=== PATIENT | female | born 1955 | race Caucasian/White ===

== ENCOUNTER 2020-06-30 14:20 | Outpatient (CLI) | payer OTHER, SELFPAY ==
--- NOTE | 2020-06-30 14:32 | XR_ITS ---
WS: [id number] EXAM: XR DEXA axial skeleton* [id number] DATE OF EXAMINATION: 06/30/2020, 1440 hours COMPARISON: None. HISTORY: 65 years year old female. Screening for osteoporosis. Postmenopausal. FINDINGS: Bone density of L1 through L4 is estimated at 0.953 g/cm sq: T-score of -1.9. This falls in the rang e of osteopenia. Bilateral proximal femur regions have bone mineral density estimated at 0.821 and 0.842 g/cm sq, righ t and left respectively, correlating with a T-score of -1.5 and -1.3. This falls in the range of oste openia. 10-year fracture risk for major osteoporotic fracture is 10.7%. XR/XR DEXA axial skeleton* [id number] IMPRESSION: Estimated bone density falls in the range of osteopenia in the lumbar spine and both proximal femur regions.
== END 2020-06-30 14:21 | disposition home or self-care (01) ==
LOC: RADWPI 14:22
PROVIDERS: PCP Electrodiagnostic Medicine; Visit Provider Electrodiagnostic Medicine
DX: Z78.0 Asymptomatic menopausal state (principal)
CPT/HCPCS: 77080

== ENCOUNTER 2021-03-23 07:59 | Outpatient (CLI) | payer OTHER, SELFPAY ==
--- NOTE | 2021-03-23 08:04 | MM_ITS ---
WS: [id number] LEFT DIGITAL MAMMOGRAPHY WITH CAD CLINICAL INFORMATION: LT BREAST PAIN;HX OF BREAST CA HISTORY: Prior history of lumpectomy and radiation therapy left breast. COMPARISON: TECHNIQUE: 6 views of the left breast were obtained. FINDINGS: Scattered fibroglandular densities of the left breast. Prior postoperative changes lumpectomy. Palpab le marker upper inner left breast. No definite underlying mammographic abnormalities. Ultrasound is p ending. Incidental punctate calcifications. ULTRASOUND BREAST LEFT TECHNIQUE: Ultrasound left breast focused area of concern. CLINICAL INFORMATION: LT BREAST PAIN;HX OF BREAST CA COMPARISON: None. FINDINGS: ULTRASOUND BREAST LEFT TECHNIQUE: Ultrasound left breast focused area of concern. CLINICAL INFORMATION: LT BREAST PAIN;HX OF BREAST CA FINDINGS: Ultrasound 11:00 position left breast medial to the scar 4 cm from the nipple. Normal underlying pare nchymal tissue. No evidence of suspicious cystic or solid lesions. No lesions to target for biopsy. I ncidentally noted is underlying shadowing rib with calcification. This may correspond to area of palp able concern. MM/[place] [id number] IMPRESSION: BI-RADS: 2-Benign FOLLOW UP: 1 Year Follow-up Recommend return to annual diagnostic mammography.
== END 2021-03-23 08:00 | disposition home or self-care (01) ==
LOC: RADSHAW 08:03
PROVIDERS: PCP Electrodiagnostic Medicine; Visit Provider Electrodiagnostic Medicine
DX: N64.4 Mastodynia (principal); Z85.3 Personal history of malignant neoplasm of breast
CPT/HCPCS: 76642; 77065

== ENCOUNTER → 2021-09-11 08:34 | Outpatient (BNVA) | payer OTHER, SELFPAY | PROVIDERS: PCP Electrodiagnostic Medicine; Visit Provider Urology | DX: R31.29 Other microscopic hematuria (principal) | CPT/HCPCS: 81003; 87086 ==

== ENCOUNTER → 2021-10-16 09:45 | Outpatient (BNVA) | payer OTHER, SELFPAY | PROVIDERS: PCP Electrodiagnostic Medicine; Visit Provider Urology | DX: N30.20 Other chronic cystitis without hematuria (principal); N76.0 Acute vaginitis | CPT/HCPCS: 81003 ==

== ENCOUNTER → 2021-11-30 10:49 | Outpatient (BNVA) | payer OTHER, SELFPAY | PROVIDERS: PCP Electrodiagnostic Medicine; Visit Provider Urology | DX: N30.20 Other chronic cystitis without hematuria (principal) | CPT/HCPCS: 81003 ==

== ENCOUNTER → 2022-03-01 14:01 | Outpatient (BNVA) | payer MEDICARE, OTHER, SELFPAY | PROVIDERS: PCP Electrodiagnostic Medicine; Visit Provider Urology | DX: R31.29 Other microscopic hematuria (principal); N30.20 Other chronic cystitis without hematuria | CPT/HCPCS: 81003 ==

== ENCOUNTER 2022-04-20 10:17 | Outpatient (CLI) | payer MEDICARE, OTHER, SELFPAY ==
--- NOTE | 2022-04-20 10:38 | XR_ITS ---
WS: [id number] Exam: XR chest 2V* [id number] Date/Time of Exam: 04/20/2022 10:38 AM Reason For Exam: DYSPNEA/HIATAL HERNIA Comparison 08/27/2019. The lungs are fully expanded and clear. Cardiomediastinal silhouette is unremarkable in appearance. L arge fixed hiatal hernia. Surgical clips along the left axilla. Bony structures are intact. XR/XR chest 2V* [id number] IMPRESSION: 1. No acute cardiopulmonary finding. Large hiatal hernia.
== END 2022-04-20 10:18 | disposition home or self-care (01) ==
LOC: RAD 10:29
PROVIDERS: PCP Family Medicine; Visit Provider Family Medicine
DX: K44.9 Diaphragmatic hernia without obstruction or gangrene (principal); R06.00 Dyspnea, unspecified
CPT/HCPCS: 71046

== ENCOUNTER → 2022-06-12 09:05 | Outpatient (BNVA) | payer MEDICARE, OTHER, SELFPAY | PROVIDERS: PCP Family Medicine; Visit Provider Urology | DX: N30.20 Other chronic cystitis without hematuria (principal) | CPT/HCPCS: 81003; 99213 ==

== ENCOUNTER → 2023-02-28 09:06 | Outpatient (BNVA) | payer MEDICARE, OTHER, SELFPAY | PROVIDERS: PCP Family Medicine; Visit Provider Family Medicine | DX: E78.5 Hyperlipidemia, unspecified (principal); E03.9 Hypothyroidism, unspecified; Z51.81 Encounter for therapeutic drug level monitoring; Z13.220 Encounter for screening for lipoid disorders; N30.20 Other chronic cystitis without hematuria | CPT/HCPCS: 80053; 80061; 81000; 84439; 84443; 85025 ==

== ENCOUNTER 2023-04-01 08:11 | Outpatient (CLI) | payer MEDICARE, OTHER, SELFPAY ==
--- NOTE | 2023-04-01 08:15 | US_ITS ---
WS: [id number] US pelv w/transvag [id number] HISTORY: Pelvic pain COMPARISON: None available. Uterus: 7.3 cm x 4.4 cm x 3.2 cm. Uterus is retroverted. Heterogeneous appearance of the uterus. There is a predominantly hypoechoic ma ss centered towards the fundus of the uterus with mild shadowing measuring 3.7 x 3.0 x 3.4 cm. Mild i ncreased vascularity. This mass is displacing and distorting the endometrium. Endometrium appears to be displaced posterior and very poorly visualized. Endometrium: Junctional zone is distorted and not visualized due to the fundal mass. Right ovary: 2.6 cm x 1.9 cm x 0.9 cm. Normal size and vascularity, no cystic or solid masses. Left ovary: 3.5 cm x 3.2 cm x 1.7 cm. Very slightly enlarged uterus. LEFT ovarian cyst measures 2.9 x 1.3 x 3.1 cm. No free fluid in the cul-de-sac. US/US pelv w/transvag [id number] IMPRESSION: 1. Solid mass with shadowing centered towards the fundus of the uterus. Most c onsistent with a fibroid. As the endometrium is being displaced posteriorly and not visualized endometrial mass is not completely excluded. 2. Fundal uterine mass measures 3.7 x 3.0 x 3.4 cm. 3. LEFT ovarian cyst 2.9 x 1.3 x 3.1 cm (O-RADS-2). No further imaging necessa ry.
== END 2023-04-01 08:12 | disposition home or self-care (01) ==
LOC: RAD 08:16
PROVIDERS: PCP Family Medicine; Visit Provider Family Medicine
DX: R10.2 Pelvic and perineal pain (principal); N85.9 Noninflammatory disorder of uterus, unspecified; N83.202 Unspecified ovarian cyst, left side
CPT/HCPCS: 76830; 76856

== ENCOUNTER 2023-11-01 11:57 | Outpatient (CLI) | payer MEDICARE, OTHER, SELFPAY ==
--- NOTE | 2023-11-01 12:15 | US_ITS ---
WS: [id number] INDICATION: Popliteal cyst TECHNIQUE: Ultrasound soft tissue area of concern FINDINGS: Ultrasound LEFT popliteal fossa. No evidence popliteal cyst in the area of concern. Normal underlying soft tissue. IMPRESSION: No evidence of popliteal cyst LEFT knee
== END 2023-11-01 11:58 | disposition home or self-care (01) ==
LOC: RAD 11:57
PROVIDERS: PCP Family Medicine; Visit Provider Family Medicine
DX: M25.562 Pain in left knee (principal)
CPT/HCPCS: 76882

== ENCOUNTER → 2023-11-14 08:45 | Outpatient (BNVA) | payer MEDICARE, OTHER, SELFPAY | PROVIDERS: PCP Family Medicine; Visit Provider Nurse Practitioner Family | DX: L57.8 Other skin changes due to chronic exposure to nonionizing radiation (principal); D22.5 Melanocytic nevi of trunk; L81.4 Other melanin hyperpigmentation; Z85.828 Personal history of other malignant neoplasm of skin | CPT/HCPCS: 17110; 99213 ==

== ENCOUNTER 2023-12-04 09:19 | Outpatient (CLI) | payer MEDICARE, OTHER, SELFPAY ==
--- NOTE | 2023-12-04 09:22 | XR_ITS ---
WS: [id number] XR knee LT 3V* [id number] REASON FOR EXAM: Left knee pain FINDINGS: No fracture or focal bone lesion. The medial and lateral knee joint spaces are not well evaluated due to patient positioning on the AP views. On the lateral view the joint spaces appear intact and relatively well preserved. The patellofemoral joint space appears intact and relatively well preserved. No soft tissue abnormality. IMPRESSION: No significant abnormality.
== END 2023-12-04 09:20 | disposition home or self-care (01) ==
LOC: RAD 09:20
PROVIDERS: PCP Family Medicine; Visit Provider Family Medicine
DX: M25.562 Pain in left knee (principal)
CPT/HCPCS: 73562

== ENCOUNTER → 2024-03-12 10:03 | Outpatient (BNVA) | payer MEDICARE, OTHER, SELFPAY | PROVIDERS: PCP Family Medicine; Visit Provider Family Medicine | DX: E53.8 Deficiency of other specified B group vitamins (principal); E03.9 Hypothyroidism, unspecified; E78.5 Hyperlipidemia, unspecified; Z13.220 Encounter for screening for lipoid disorders; E55.9 Vitamin D deficiency, unspecified; Z51.81 Encounter for therapeutic drug level monitoring | CPT/HCPCS: 80053; 80061; 82306; 82607; 84439; 84443; 85025 ==

== ENCOUNTER → 2024-04-01 10:29 | Outpatient (BNVA) | payer MEDICARE, OTHER, SELFPAY | PROVIDERS: PCP Family Medicine; Referring Provider Family Medicine; Visit Provider Surgery | DX: Z12.11 Encounter for screening for malignant neoplasm of colon (principal) | CPT/HCPCS: 99024; 99203 ==

== ENCOUNTER 2024-05-05 10:27 | Day surgery (SDC) | payer MEDICARE, OTHER, SELFPAY ==
[2024-05-05 10:55] VITALS: BP 151/85; PULSE 86; RESP 18; TEMP 36.8; O2SAT 99; BMI 23.1
--- NOTE | 2024-05-05 10:58 | W.PM.OPSFHP ---
Same Day Surgery H&P Indication for Procedure/HPI DATE OF PROCEDURE: May 05, 2024 CHIEF COMPLAINT/INDICATIONFOR SURGICAL PROCEDURE: need for screening colonoscopy PREOP DIAGNOSIS: need for screenign colonoscopuy PLANNED PROCEDURE: Operation Date: 05/05/24 11:45 Proposed Procedures p Colonoscopy 16213, G0105, Z12.11(Not Applicable) - Joshua Carter MD Medications/Allergies* Home Medications Medication Instructions Recorded Confirmed Type Lactobacillus acidophilus 10 10,000 mmu cells PO DAILY 11/30/21 04/30/24 History billion cell capsule (Probiotic) estradiol 0.01% (0.1 mg/gram) 1 g vaginal .ONCE A WEEK 02/26/23 05/05/24 History vaginal cream Allergies/Adverse Reactions Allergy/AdvReac Type Severity Reaction Status Date / Time ciprofloxacin [From Cipro] Allergy ADR-Nausea Verified 04/30/24 11:52 Sulfa (Sulfonamide Allergy ADR-Itching Verified 04/30/24 11:52 Antibiotics) metoclopramide [From Reglan] AdvReac hyper Verified 04/30/24 11:52 fluvastatin Allergy ADR-Muscle Uncoded 04/30/24 11:52 Pain Pertinent History/Comorbid Conditions* Medical History (Updated 03/12/24 @ 10:27 by Domenico Rodriguez MD) Elevated cholesterol Hx of breast cancer Hx of skin cancer, basal cell Hypothyroidism Retina hole REPAIRED Microscopic hematuria Surgical History (Updated 10/23/21 @ 14:11 by Liliane Parker DO) History of lumpectomy of left breast Hx of gynecological procedure Family History (Updated 09/11/21 @ 08:44 by CEZAR Suazo) Father, AT AGE 49 LUNG CANCER Mother, AT AGE 84 Diabetes Mother CAD (coronary artery disease) Mother Cancer Mother BREAST Father Social History Smoking and tobacco/nicotine status: never used tobacco/nicotine Alcohol intake: never Marital status: Current occupational status: retired Pertinent Exam Findings alert, oriented x 3 and clear to auscultation bilaterally Recommendations Surgery/Procedure today Coding Level of Care Code Acute Code for Chg Fwd
[2024-05-05] MEDS: sodium chloride 0.9% 1,000 ML 30 ML IV (11:00)
--- NOTE | 2024-05-05 11:13 | ANES.PREANE2 ---
Pre-Anesthetic Assessment Height/Weight: Height 1.63 m Weight 61.235 kg Temp Pulse Resp BP Pulse Ox O2 Del Method 98.2 F 86 18 151/85 99 Room Air 05/05/24 10:55 05/05/24 10:55 05/05/24 10:55 05/05/24 10:55 05/05/24 10:55 05/05/24 10:55 Preop Diagnosis: need for screenign colonoscopuy Operation Date: 05/05/24 11:45 Proposed Procedures p Colonoscopy 20793, G0105, Z12.11(Not Applicable) - Joshua Carter MD Familial anesthetic complications: None Was Beta Salas taken within 24 hours: N/A Was Clonidine taken within 24 hours: N/A Last intake: Intake Last Liquid Date 05/04/24 Last Liquid Time 19:30 Last Solid Date 05/03/24 Last Solid Time 23:00 Social No alcohol and No tobacco Exam alert, oriented x 3, clear to auscultation bilaterally and regular rate & rhythm Airway Submandibular: within normal limits Cervical ROM: within normal limits Mallampati: Class III Dentition: full History/ROS No significant history except as noted and No significant complaints Pulmonary None reported CV/HEM Palpitations Urinary Tract Infection Hepatic None reported GI None reported Metabolic Hyperlipidemia and Thyroid Disease Musc/skel Osteoarthritis/DJD Neuropsych Depression Anesthetic Plan ASA status: 1 Anesthesia: Anesthesia Evaluation, General and MAC Risk of > 500 ml blood loss (7ml/kg in children): No Medications/Allergies Home Medications Medication Instructions Recorded Confirmed Last Taken Type Lactobacillus acidophilus 10 10,000 mmu cells PO DAILY 11/30/21 04/30/24 05/03/24 History billion cell capsule (Probiotic) estradiol 0.01% (0.1 mg/gram) 1 g vaginal .ONCE A WEEK 02/26/23 05/05/24 05/01/24 History vaginal cream imipramine HCl 50 mg tablet 50 mg PO DAILY #90 tabs 03/12/24 04/30/24 05/04/24 Rx levothyroxine 50 mcg tablet 50 mcg PO DAILY #90 tabs 03/12/24 04/30/24 05/05/24 06:30 Rx ondansetron 8 mg disintegrating 8 mg PO Q8H PRN nausea and 06/10/24 06/25/24 06/24/24 Rx tablet vomiting #20 tabs Allergies Allergy/AdvReac Type Severity Reaction Status Date / Time ciprofloxacin [From Cipro] Allergy ADR-Nausea Verified 04/30/24 11:52 Sulfa (Sulfonamide Allergy ADR-Itching Verified 04/30/24 11:52 Antibiotics) metoclopramide [From Reglan] AdvReac hyper Verified 04/30/24 11:52 fluvastatin Allergy ADR-Muscle Uncoded 04/30/24 11:52 Pain Current Medications Generic Name Dose Route Start Last Admin Trade Name Freq PRN Reason Stop Dose Admin Sodium Chloride 1,000 mls @ 30 mls/hr 05/05/24 10:45 05/05/24 11:00 Sodium Chloride 0.9% IV 30 mls/hr .Q24H SEBASTIEN Administration PFSH Anesthesia Medical History Elevated cholesterol Hx of breast cancer Hx of skin cancer, basal cell Hypothyroidism Retina hole REPAIRED Microscopic hematuria Surgical History History of lumpectomy of left breast Hx of gynecological procedure Family History Mother , AT AGE 84 Diabetes Cancer BREAST CAD (coronary artery disease) Father , AT AGE 49 LUNG CANCER Cancer Social History Smoking and tobacco/nicotine status: never used tobacco/nicotine Alcohol intake: never Marital status: Current occupational status: retired Data Anesthesia Cardiac Studies: Cardiac Event Monitor 03/18/24
[2024-05-05 11:53] VITALS: BP 123/79; PULSE 91; RESP 12; TEMP 36.2; O2SAT 98
[2024-05-05 12:00] VITALS: BP 139/88; PULSE 83; RESP 16; O2SAT 100
[2024-05-05 12:08] VITALS: BP 142/86; PULSE 84; RESP 16; O2SAT 99
--- NOTE | 2024-05-05 12:25 | ANE.PACU2 ---
Inpatient post-anesthesia follow up: Airway intact: Yes Vital signs: Temperature 97.1 F Pulse Rate 84 Respiratory Rate 16 Blood Pressure 142/86 Pulse Oximetry 99 Oxygen Delivery Me thod Room Air Oxygen Flow Rate Fraction of Inspir ed Oxygen Hydration adequate: Yes Nausea and vomiting: No Pain level: 1 Mental status: Baseline
== END 2024-05-05 12:28 | disposition home or self-care (01) ==
PROVIDERS: PCP Family Medicine; Visit Provider Surgery
PROC: 0DJD8ZZ Inspection of Lower Intestinal Tract, Via Natural or Artificial Opening Endoscopic (ICD-10-PCS; CPT 45330; 2024-05-05 11:45)
DX: Z12.11 Encounter for screening for malignant neoplasm of colon (principal); D12.8 Benign neoplasm of rectum; Z85.3 Personal history of malignant neoplasm of breast; E03.9 Hypothyroidism, unspecified; E78.5 Hyperlipidemia, unspecified; M19.90 Unspecified osteoarthritis, unspecified site
CPT/HCPCS: 45331; 45335; 88305; J2704; J7030

== ENCOUNTER 2024-05-06 12:07 | Outpatient (CLI) | payer MEDICARE, OTHER, SELFPAY ==
[2024-05-06 13:12] LABS: Carcinoembryonic Antigen 2.6 ng/mL (0.0-4.7)
[2024-05-06 13:24] LABS: Alanine Aminotransferase 12 U/L (0-33); Albumin Level 4.1 g/dL (3.5-5.2); Alkaline Phosphatase 81 U/L (35-105); Anion Gap 14.9 (5-19); Aspartate Amino Transferase 15 U/L (0-32); Blood Urea Nitrogen 15 mg/dL (8-23); Calcium 8.7 mg/dL (8.5-10.5); Carbon Dioxide 24 mmol/L (22-29); Chloride 99 mmol/L (98-107); Glomerular Filtration Rate 55.3 mL/min (90-130); Glucose 126 mg/dL (65-115); Osmolality Calculated 280 mOsm/kg (285-295); Potassium 3.9 mmol/L (3.5-5.1); Sodium 134 mmol/L (136-145); Total Bilirubin 0.4 mg/dL (0.15-1.2); Total Protein 7.1 g/dL (6.6-8.7)
[2024-05-06 14:19] LABS: Basophils % 0.4 %; Eosinophils % 0.6 %; Hematocrit 41.5 % (36-47); Lymphocytes # 1.9 10^3/uL (0.8-4.8); Lymphocytes % 27.4 %; Mean Corpuscular HGB Conc 32.3 g/dL (30-55); Mean Corpuscular Hemoglobin 27.5 pg (27-33); Mean Corpuscular Volume 85.2 fl (85-98); Mean Platelet Volume 9.7 fL (7.4-10.4); Monocytes # 0.3 10^3/uL (0.2-0.9); Monocytes % 4.9 %; Neutrophils # 4.64 10^3/uL (1.8-7.7); Neutrophils % 66.4 %; Nucleated Red Blood Cells % 0 %; Platelet Count 322 10^3/cmm (157-399); Red Blood Count 4.87 10^6/uL (3.85-5.65); Red Cell Distribution Width 12.7 % (12.1-15.1); White Blood Count 6.98 10^3/uL (3.29-11.43)
== END 2024-05-06 12:08 | disposition home or self-care (01) ==
LOC: LAB 12:08
PROVIDERS: PCP Family Medicine; Visit Provider Surgery
DX: C18.9 Malignant neoplasm of colon, unspecified; K63.89 Other specified diseases of intestine
CPT/HCPCS: 36415; 80053; 82378; 85025

== ENCOUNTER 2024-05-12 15:20 | Outpatient (CLI) | payer MEDICARE, OTHER, SELFPAY ==
[2024-05-12] MEDS: iohexol 350 mg/mL 500 mL Btl (per mL) PO (16:09)
--- NOTE | 2024-05-12 16:30 | CTR_ITS ---
PROCEDURE INFORMATION: Exam: CT Abdomen And Pelvis With Contrast Exam date and time: 05/12/2024 4:36 PM Age: 69 years old Clinical indication: Other: Ther specified diseases of intestine; Patient HX: Follow up from colonoscopy, mass in colon, HX of breast cancer; Additional info: K63.89 - other specified diseases of intestine, oral and iv contrast TECHNIQUE: Imaging protocol: Computed tomography of the abdomen and pelvis with contrast. Radiation optimization: All CT scans at this facility use at least one of these dose optimization techniques: automated exposure control; mA and/or kV adjustment per patient size (includes targeted exams where dose is matched to clinical indication); or iterative reconstruction. Contrast material: OMNI 350; Contrast volume: 100 ml; Contrast route: INTRAVENOUS (IV); COMPARISON: CR XR KUB [id number] 08/26/2019 9:54 AM RADIATION DOSE METRICS: Total DLP (mGy-cm): 319.71 FINDINGS: Liver: Normal. No mass. Gallbladder and biliary ducts: 2 calcified gallstones up to 1.6 cm are present. No evidence of acute changes in the gallbladder. No biliary dilation. Pancreas: Normal. No ductal dilation. Spleen: Normal. No splenomegaly. Adrenal glands: Normal. No mass. Kidneys and ureters: Normal. No hydronephrosis. Stomach and bowel: Large hiatal hernia containing most of the stomach. Scattered sigmoid diverticuli without acute inflammatory change. Ofoanbuz-cl-ocqcp amount colonic stool. Enteric contrast reaches the hepatic flexure. A 1.6 cm rounded density in the rectosigmoid junction (series 3, image 66) be due to stool versus polyp. Otherwise no clear-cut colonic thickening of the stricture to correlate with the history of mass in colon . Appendix: Unremarkable appendix. Intraperitoneal space: Unremarkable. No free air. No significant fluid collection. Vasculature: Unremarkable. No abdominal aortic aneurysm. Lymph nodes: Unremarkable. No enlarged lymph nodes. Urinary bladder: Unremarkable as visualized. Reproductive: 4.1 cm fibroid is noted of the uterine fundus. Small left ovarian cyst incidentally noted, up to 2.5 x 1.5 cm. Bones/joints: 3.1 cm sclerotic area in the right iliac bone (series 3, image 55) is not further characterized and could be due to benign versus neoplastic etiology, the former seems more likely. A sclerotic corresponding area noted on MRI obtained 09/11/2019. Mild rotary scoliosis. [id number]-[id number] multilevel endplate spurring in the lumbar spine. Grade 1 anterolisthesis of L4 over L5-C2 moderately underlying facet arthropathy. Soft tissues: Small bilateral fat containing inguinal hernias without evident complications. CT/CT abdomen pelvis w con* [id number] IMPRESSION: 1. Large volume colonic stool retention/constipation . 2. A 1.6 cm rounded density in the rectosigmoid junction due to fecal material versus polyp. Correlation with the reported colonoscopy findings recommended. 3. A 3.1 cm sclerotic area in the right iliac bone likely with stable correlate as far back as 2019 lumbar MRI. However, correlation with any other available prior imaging recommended given the reported history of neoplasia. 4. Large calcified gallstones, large hiatal hernia sigmoid diverticula and other findings detailed above.
[2024-05-12] MEDS: iohexol 350 mg/mL 500 mL Btl (per mL) IV (16:42)
== END 2024-05-12 15:21 | disposition home or self-care (01) ==
LOC: RAD 15:21
PROVIDERS: PCP Family Medicine; Visit Provider Surgery
DX: K63.89 Other specified diseases of intestine (principal); Z85.3 Personal history of malignant neoplasm of breast; K80.20 Calculus of gallbladder without cholecystitis without obstruction; K44.9 Diaphragmatic hernia without obstruction or gangrene; K56.41 Fecal impaction; D25.9 Leiomyoma of uterus, unspecified; M43.16 Spondylolisthesis, lumbar region; M47.896 Other spondylosis, lumbar region
CPT/HCPCS: 74177; Q9967

== ENCOUNTER → 2024-05-20 14:14 | Outpatient (BNVA) | payer MEDICARE, OTHER, SELFPAY | PROVIDERS: PCP Family Medicine; Visit Provider Surgery | DX: Z09 Encounter for follow-up examination after completed treatment for conditions other than malignant neoplasm (principal) | CPT/HCPCS: 99204; 99213 ==

== ENCOUNTER 2024-06-03 15:42 | Outpatient (CLI) | payer MEDICARE, OTHER, SELFPAY ==
[2024-06-03] MEDS: iohexol 350 mg/mL 500 mL Btl (per mL) IV (15:57)
--- NOTE | 2024-06-03 16:00 | CT_ITS ---
WS: [id number] CT HEAD WITH AND WITHOUT CONTRAST HISTORY: Headache TECHNIQUE: Noncontrast 2.5 mm axial images obtained from the vertex to the skull base. Additional lulú ging performed at 2.5 mm axial images status post IV contrast. Bone and soft tissue windows are revie wed. All CT scans at [facility] use at least one of these dose optimization techniques: autom ated exposure control; mA and/or kV adjustment per patient size (includes targeted exams where dose i s matched to clinical indication); or iterative reconstruction. CONTRAST: Omnipaque 350; 100 mL IV. DLP: 1941.18 mGy.cm COMPARISON: None available. No acute intracranial hemorrhage, edema or midline shift. Mild atrophy and mild small vessel ischemic disease. No prior infarct. No sulcal effacement or mass effect. No enhancing mass or vascular malformations identified. Dural venous sinuses are normally enhancing. Visualized [place] is unremarkable. Paranasal sinuses as visualized: Clear. Mastoid air cells: Clear. Calvarium and scalp: Intact. CT/CT head wo/w con [id number] IMPRESSION: 1. No acute intracranial hemorrhage or edema. 2. No enhancing mass. 3. Mild cerebral atrophy and small vessel ischemic disease. 4. Visualized [place] of [place] is negative. 5. No sinus disease.
== END 2024-06-03 15:43 | disposition home or self-care (01) ==
LOC: RAD 15:42
PROVIDERS: PCP Family Medicine; Visit Provider Family Medicine
DX: R51.9 Headache, unspecified (principal); R42 Dizziness and giddiness
CPT/HCPCS: 70470; Q9967

== ENCOUNTER 2024-06-27 06:46 | Emergency (ER) | payer MEDICARE, OTHER, SELFPAY ==
[2024-06-27 07:05] VITALS: BP 122/86; PULSE 128; RESP 16; O2SAT 100; BMI 22.6
--- NOTE | 2024-06-27 07:09 | CTR_ITS ---
PROCEDURE INFORMATION: Exam: CT Abdomen And Pelvis With Contrast Exam date and time: 06/27/2024 8:06 AM Age: 69 years old Clinical indication: Abdominal pain; Localized; Lower; Prior surgery; Surgery date: 3-7 days post-operative; Surgery type: 28cm distal bowel resection d/t mass removal; Patient HX: HX breast and skin cancer, recent colon mass removal; Additional info: Abd pain TECHNIQUE: Imaging protocol: Computed tomography of the abdomen and pelvis with contrast. Radiation optimization: All CT scans at this facility use at least one of these dose optimization techniques: automated exposure control; mA and/or kV adjustment per patient size (includes targeted exams where dose is matched to clinical indication); or iterative reconstruction. Contrast material: OMNIPAQUE 350; Contrast volume: 100 ml; Contrast route: INTRAVENOUS (IV); COMPARISON: CT abdomen pelvis w con* [id number] 05/12/2024 4:36 PM RADIATION DOSE METRICS: Total DLP (mGy-cm): 444.71 FINDINGS: Lungs: Bilateral lobe atelectasis. Diaphragm: Large hiatal hernia. Liver: Normal. No mass. Gallbladder and biliary ducts: Calcified gallstones no changes of cholecystitis. Pancreas: Normal. No ductal dilation. Spleen: Normal. No splenomegaly. Adrenal glands: Normal. No mass. Kidneys and ureters: Normal. No hydronephrosis. Stomach and bowel: No gastric outlet obstruction. Surgical changes of partial distal colectomy dilatation small bowel loops with no transition zone, suggestive of ileus. Above average fecal loading in the ascending and transverse colon with mild dilatation. Appendix: No evidence of appendicitis. Intraperitoneal space: Mild ascites. Vasculature: Vascular calcifications. Lymph nodes: Unremarkable. No enlarged lymph nodes. Urinary bladder: Unremarkable as visualized. Reproductive: Uterine fibroid measuring 4.5 x 3 cm at the level of the fundus. Bones/joints: Pockets of air around the anastomosis site in the pelvis, likely postop mild degenerative disease of both hip joints. Moderate bilateral L4-L5 facet joint arthropathy with mild anterolisthesis L4 over L5 Soft tissues: Unremarkable. CT/CT abdomen pelvis w con* [id number] IMPRESSION: 1. Post distal partial colectomy. 2. Findings suggestive of ileus. 3. Cholelithiasis with no changes of acute cholecystitis. 4. Large hiatal hernia with no changes of gastric outlet obstruction.
--- NOTE | 2024-06-27 07:11 | ED_ITS ---
HPI - Abdominal Pain 2 General: Chief Complaint: Abdominal Pain Stated Complaint: abd pain, bloating, post colon sugery Time Seen by Provider: 06/27/24 06:52 Source: patient Mode of arrival: ambulatory Limitations: no limitations History of Present Illness: 69-year-old female states she had a part ial bowel resection last week for a colon mass states that since then had some slight pain states she did have a worsening pain 2 days ago has not had a bowel movement denies any vomiting states pain is diffuse in nature rates it 6 out of 10 she denies any worsening improving factors. Associated Symptoms: Denies chills, diarrhea, dysuria, fever(s), nausea and vomiting Related Data Home Medications Medication Instructions Recorded Confirmed Lactobacillus acidophilus 10 10,000 mmu cells PO DAILY 11/30/21 06/01/24 billion cell capsule (Probiotic) estradiol 0.01% (0.1 mg/gram) 1 g vaginal .ONCE A WEEK 02/26/23 06/01/24 vaginal cream Previous Rx's Medication Instructions Recorded imipramine HCl 50 mg tablet 50 mg PO DAILY #90 tabs 03/12/24 ondansetron 8 mg disintegrating 8 mg PO Q8H PRN nausea and 04/20/24 tablet vomiting #20 tabs polyethylene glycol 3350 17 gram 17 g PO DAILY 30 days #30 ea 05/05/24 oral powder packet (Miralax) carbamazepine 200 mg tablet 100 mg (1/2 x 200 mg) PO BID #60 06/01/24 tabs levothyroxine 25 mcg tablet 25 mcg PO DAILY #30 tabs 06/01/24 Allergies Allergy/AdvReac Type Severity Reaction Status Date / Time ciprofloxacin [From Cipro] Allergy ADR-Nausea Verified 05/20/24 14:19 Sulfa (Sulfonamide Allergy ADR-Itching Verified 05/20/24 14:19 Antibiotics) metoclopramide [From Reglan] AdvReac hyper Verified 05/20/24 14:19 fluvastatin Allergy ADR-Muscle Uncoded 05/20/24 14:19 Pain Review of Systems 2 Const: Denies: fever(s), chills, body aches or change in appetite ENMT: Denies: throat pain or dental pain Card: Denies: chest pain Resp: Denies: dyspnea GI: Reports: abdominal pain; Denies: nausea, vomiting or diarrhea : Denies: dysuria Musc: Denies: neck pain or back pain Skin/Breast: Denies: rash Neuro: Denies: headache(s) PFSH ED 2 PFSH: Medical History Elevated cholesterol Hx of breast cancer Hx of skin cancer, basal cell Hypothyroidism Retina hole REPAIRED Microscopic hematuria Surgical History History of lumpectomy of left breast Hx of gynecological procedure Family History Mother , AT AGE 84 Diabetes Cancer BREAST CAD (coronary artery disease) Father , AT AGE 49 LUNG CANCER Cancer Social History Smoking and tobacco/nicotine status: never used tobacco/nicotine Alcohol intake: never Marital status: Current occupational status: retired Physical Exam 2 Const: COMMON NORMALS: no acute distress, patient oriented x3 and healthy appearing HENMT: COMMON NORMALS: normocephalic and atraumatic HEAD & SCALP: n ormocephalic and atraumatic Eye: COMMON NORMALS: conjunctivae normal CONJUNCTIVA: Yes conjunctivae normal Neck/C-Spine: COMMON NORMALS: full ROM and supple Chest: COMMONS NORMALS: normal inspection of the chest Resp: COMMON NORMALS: normal respiratory effort, No retractions, No use of accessory muscles and clear to auscultation bilaterally AUSCULTATION: clear to auscultation bilaterally Cardio: COMMON NORMALS: regular rate, regular rhythm and No murmurs present (Cardio) RATE: regular rate RHYTHM: regular rhythm GI: COMMON NORMALS: Normal to inspection, nondistended, normoactive bowel sounds present, Soft to palpation and no masses PALPATION: Yes Soft to palpation OTHER: diffuse tenderness Extremity: COMMON NORMALS: normal to inspection and full ROM Neuro: COMMON NORMALS: patient oriented x3, moves all extremities and no focal motor deficits Psych: COMMON NORMALS: mental status grossly normal, Normal thought process present and cooperative THOUGHT PROCESS: Normal thought process present Skin: COMMON NORMALS: no rashes or lesions noted and no wounds GENERAL SKIN EXAM: no rashes or lesions noted Course 2 Vital Signs: Vital signs: Vital Signs Pulse Rate 91 06/27/24 08:33 Respiratory Rate 16 08/17/24 07:22 Blood Pressure 135/69 06/27/24 08:33 Pulse Oximetry 96 06/27/24 08:33 Oxygen Delivery Me thod Room Air 06/27/24 08:33 MDM - Abdominal Pain Medical Decision Making Patient presents with abdominal pain CT showed ileus she has no signs of obstruction her abdomen soft nontender blood work here is normal she is to do a liquid diet she follows up with her PCP on Saturday she is return if worsening she understands agrees to plan Medical Records I reviewed the patient's medical records. Lab Data I reviewed the patient's lab results. 06/27/24 07:15 06/27/24 07:15 Labs/Radiology: Radiology Impressions Abdomen/Pelvis CT 06/27/24 07:09 IMPRESSION: 1. Post distal partial colectomy. 2. Findings suggestive of ileus. 3. Cholelithiasis with no changes of acute cholecystitis. 4. Large hiatal hernia with no changes of gastric outlet obstruction. Laboratory Results WBC 12.32 10^3/uL (3.29-11.43) H 06/27/24 07:15 RBC 5.04 10^6/uL (3.85-5.65) 06/27/24 07:15 Hgb 13.50 g/dL (11.27-16.99) 06/27/24 07:15 Hct 41.5 % (36-47) 06/27/24 07:15 MCV 82.3 fl (85-98) L 06/27/24 07:15 MCH 26.8 pg (27-33) L 06/27/24 07:15 MCHC 32.5 g/dL (30-55) 06/27/24 07:15 RDW 13.5 % (12.1-15.1) 06/27/24 07:15 Plt Count 363 10^3/cmm (157-399) 06/27/24 07:15 MPV 9.1 fL (7.4-10.4) 06/27/24 07:15 Neut % (Auto) 87.5 % 06/27/24 07:15 Lymph % (Auto) 8.0 % 06/27/24 07:15 [place] % (Auto) 3.7 % 06/27/24 07:15 Eos % (Auto) 0.1 % 06/27/24 07:15 Baso % (Auto) 0.2 % 06/27/24 07:15 Neut # (Auto) 10.78 10^3/uL (1.8-7.7) H 06/27/24 07:15 Lymph # (Auto) 1.0 10^3/uL (0.8-4.8) 06/27/24 07:15 [place] # (Auto) 0.5 10^3/uL (0.2-0.9) 06/27/24 07:15 Eos # (Auto) 0.0 10^3/uL (0.0-0.8) 06/27/24 07:15 Baso # (Auto) 0.0 10^3/uL (0.0-0.1) 06/27/24 07:15 Nucleated RBC % (auto) 0 % 06/27/24 07:15 Nucleated RBCs # 0.0 /100WBC 06/27/24 07:15 Sodium 130 mmol/L (136-145) L 06/27/24 07:15 Potassium 3.9 mmol/L (3.5-5.1) 06/27/24 07:15 Chloride 94 mmol/L (98-107) L 06/27/24 07:15 Carbon Dioxide 23 mmol/L (22-29) 06/27/24 07:15 Anion Gap 16.9 (5-19) 06/27/24 07:15 BUN 12 mg/dL (8-23) 06/27/24 07:15 Creatinine 0.9 mg/dL (0.5-0.9) 06/27/24 07:15 GFR Calculation 62.5 mL/min (90-130) L 06/27/24 07:15 Glucose 122 mg/dL (65-115) H 06/27/24 07:15 Calculated Osmolality 271 mOsm/kg (285-295) L 06/27/24 07:15 Lactic Acid 1.5 mmol/L (0.5-2.2) 06/27/24 07:15 Calcium 9.1 mg/dL (8.5-10.5) 06/27/24 07:15 Total Bilirubin 0.4 mg/dL (0.15-1.2) 06/27/24 07:15 AST 26 U/L (0-32) 06/27/24 07:15 ALT 26 U/L (0-33) 06/27/24 07:15 Alkaline Phosphatase 85 U/L (35-105) 06/27/24 07:15 Total Protein 7.4 g/dL (6.6-8.7) 06/27/24 07:15 Albumin 4.0 g/dL (3.5-5.2) 06/27/24 07:15 Globulin 3.4 g/dL (1.3-4.6) 06/27/24 07:15 Lipase 35 U/L (13-60) 06/27/24 07:15 Amorphous Sediment Not Reportable 06/27/24 08:02 All radiology interpretation(s) finalized by discharge EKG Data EKG 1: I personally reviewed and interpreted this EKG as follows: EKG interpretation date: 06/27/24 EKG interpretation time: 07:54 Interpretation: nsr hr [address] elevation qrs 81 qtc 452 Discharge Plan Discharge Patient Disposition: Home Clinical Impression: Abdominal pain, Ileus Condition: Stable Prescriptions: No Action Probiotic 10 billion cell capsule 10,000 mmu cells PO DAILY estradiol 0.01 % (0.1 mg/gram) cream 1 g vaginal .ONCE A WEEK Rx Instructions: for 14 days imipramine HCl 50 mg tablet 50 mg PO DAILY Qty: 90 3RF carbamazepine 200 mg tablet 100 mg PO BID Qty: 60 2RF levothyroxine 25 mcg tablet 25 mcg PO DAILY Qty: 30 3RF ondansetron 8 mg tablet,disintegrating 8 mg PO Q8H PRN (Reason: nausea and vomiting) Qty: 20 0RF Miralax 17 gram powder in packet 17 g PO DAILY 30 Days Qty: 30 6RF Discharge Orders: Discharge ED (Routine); Ordered 06/27/24 Ordered By: Mert Devries Referrals: Domenico Rodriguez MD [Primary Care Provider] - 1-3 days Discharge Diet: Advance as tolerated Discharge Activity: Resume usual activity Patient Instructions: Abdominal Pain (ED), Ileus (ED) Coding Level of Care Code ED Staff Cytotechnologist for Chg Goldie
[2024-06-27 07:18] VITALS: RESP 16; O2SAT 100
[2024-06-27] MEDS: ondansetron 2 mg/ML SDV 2 mL 4 MG IVP (07:18)
[2024-06-27] MEDS: morphine 4 mg/mL SDV 1 mL IVP (07:18)
[2024-06-27 07:22] VITALS: BP 122/86; PULSE 65; RESP 16; O2SAT 99
[2024-06-27 07:22] LABS: Basophils % 0.2 %; Eosinophils % 0.1 %; Hematocrit 41.5 % (36-47); Mean Corpuscular HGB Conc 32.5 g/dL (30-55); Mean Corpuscular Hemoglobin 26.8 pg (27-33); Mean Corpuscular Volume 82.3 fl (85-98); Mean Platelet Volume 9.1 fL (7.4-10.4); Monocytes # 0.5 10^3/uL (0.2-0.9); Monocytes % 3.7 %; Neutrophils # 10.78 10^3/uL (1.8-7.7); Neutrophils % 87.5 %; Nucleated Red Blood Cells % 0 %; Platelet Count 363 10^3/cmm (157-399); Red Blood Count 5.04 10^6/uL (3.85-5.65); Red Cell Distribution Width 13.5 % (12.1-15.1); White Blood Count 12.32 10^3/uL (3.29-11.43)
[2024-06-27] MEDS: sodium chloride 0.9% 1,000 ML 999 ML IV (07:41)
[2024-06-27 07:43] LABS: Lactic Sepsis W/Reflex 1.5 mmol/L (0.5-2.2)
[2024-06-27 07:44] LABS: Alanine Aminotransferase 26 U/L (0-33); Alkaline Phosphatase 85 U/L (35-105); Anion Gap 16.9 (5-19); Aspartate Amino Transferase 26 U/L (0-32); Blood Urea Nitrogen 12 mg/dL (8-23); Calcium 9.1 mg/dL (8.5-10.5); Carbon Dioxide 23 mmol/L (22-29); Chloride 94 mmol/L (98-107); Creatinine Clr Calc Pharmacy 54.3604; Globulin 3.4 g/dL (1.3-4.6); Glomerular Filtration Rate 62.5 mL/min (90-130); Glucose 122 mg/dL (65-115); Lipase 35 U/L (13-60); Osmolality Calculated 271 mOsm/kg (285-295); Potassium 3.9 mmol/L (3.5-5.1); Sodium 130 mmol/L (136-145); Total Bilirubin 0.4 mg/dL (0.15-1.2); Total Protein 7.4 g/dL (6.6-8.7)
--- NOTE | 2024-06-27 07:54 | ECG_ITS ---
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
[2024-06-27] MEDS: iohexol 350 mg/mL 500 mL Btl (per mL) IV (08:09)
[2024-06-27 08:33] VITALS: BP 135/69; PULSE 91; O2SAT 96
[2024-06-27 08:35] LABS: Charge for UA Resulting for Rev
[2024-06-27 08:42] LABS: Bilirubin Urine Negative (Negative); Blood Urine Negative (Negative); Glucose Urine UA Negative (Normal); Ketones Urine 1+ (Negative); Leukocyte Esterase Urine Trace (Negative); Nitrate Urine Negative (Negative); Protein Urine 1+ (Negative); Specific Gravity, Urine 1.025 (1.005-1.030); Urine Appearance Cloudy (CLEAR); Urine Color Dark Yellow (Yellow); pH Urine 5.5 (5-7)
[2024-06-27 08:47] LABS: Bacteria Urine None Seen /hpf; Hyaline Casts Urine 14.87 /lpf
[2024-06-27 09:04] LABS: Add Urine Culture? No; Calcium Oxalate Crystals Urine 15-25 /hpf; Mucus Urine 2+ /hpf; UA Slide Review UA Slide Review Perf
[2024-06-27] MEDS: polyethylene glycol 3350 Pkt 17 gm PO (09:04)
[2024-06-27 09:08] VITALS: BP 135/69; PULSE 91; O2SAT 96
== END 2024-06-27 09:10 | disposition home or self-care (01) ==
PROVIDERS: Emergency Provider Emergency Medicine; PCP Family Medicine
DX: R10.9 Unspecified abdominal pain (principal); K56.7 Ileus, unspecified; Z85.3 Personal history of malignant neoplasm of breast; Z98.890 Other specified postprocedural states; Z90.49 Acquired absence of other specified parts of digestive tract
CPT/HCPCS: 74177; 80053; 81003; 81015; 83605; 83690; 85025; 93005; 96361; 96374; 96375; 99285; J2270; J2405; J7030; Q9967

== ENCOUNTER 2024-07-03 18:44 | Emergency (ER) | payer MEDICARE, OTHER, SELFPAY ==
[2024-07-03 18:57] VITALS: BP 127/78; PULSE 104; RESP 16; TEMP 36.7; O2SAT 99
[2024-07-03 19:22] VITALS: BP 137/92
--- NOTE | 2024-07-03 19:25 | XRR_ITS ---
PROCEDURE INFORMATION: Exam: XR Abdomen Exam date and time: 07/03/2024 7:35 PM Age: 69 years old Clinical indication: Abdominal pain; Generalized; Prior surgery; Surgery date: <1 month; Surgery type: Partial colectomy 06/22/2024. Breast lumpectomy; Patient HX: C/O persistent abd pain since partial colectomy on June 22 2024. History of breast cancer. TECHNIQUE: Imaging protocol: Radiologic exam of the abdomen. Views: 3 or more views. COMPARISON: CT abdomen pelvis w con* [id number] 06/27/2024 8:06 AM FINDINGS: Heart/Mediastinum: Large gas containing hiatal hernia. Gastrointestinal tract: Gaseous distension of multiple loops of bowel. A loop of small bowel within the left lower quadrant measures up to 5 cm. Sutures are seen within the rectum. Intraperitoneal space: Normal. No free air. Bones/joints: Unremarkable for age. XR/XR acute abdomen series [id number] IMPRESSION: Prominent gaseous distension of multiple loops of bowel similar compared to CT scan June 27, 2024. Findings are concerning for ongoing ileus. Large gas containing hiatal hernia.
--- NOTE | 2024-07-03 19:32 | W.ED.ABDPA2 ---
HPI - Abdominal Pain General: Chief Complaint: Abdominal Pain Stated Complaint: urgent care sent post op colon asleep ileus Time Seen by Provider: 07/03/24 19:24 History of Present Illness: 69-year-old female who had a partial colon resection about 101days ago. She has been having pain in her abdomen was diagnosed with an ileus on Saturday. They have been trying to get her bowels to move with fluids and mag citrate. Some nausea. No vomiting. No focal abdominal pain just generalized tenderness. She was seen in urgent care today and was told to go to the emergency room. She was seen in the emergency room 6 days ago and x-ray was done that showed ileus and a CT was done that showed an ileus as well. She has not been able to eat hardly any solids. She has been drinking some fluids. She is feeling very weak. Related Data Home Medications Medication Instructions Recorded Confirmed Lactobacillus acidophilus 10 10,000 mmu cells PO DAILY 11/30/21 07/03/24 billion cell capsule (Probiotic) estradiol 0.01% (0.1 mg/gram) 1 g vaginal .ONCE A WEEK 02/26/23 07/03/24 vaginal cream Previous Rx's Medication Instructions Recorded imipramine HCl 50 mg tablet 50 mg PO DAILY #90 tabs 03/12/24 ondansetron 8 mg disintegrating 8 mg PO Q8H PRN nausea and 04/20/24 tablet vomiting #20 tabs polyethylene glycol 3350 17 gram 17 g PO DAILY 30 days #30 ea 05/05/24 oral powder packet (Miralax) carbamazepine 200 mg tablet 100 mg (1/2 x 200 mg) PO BID #60 06/01/24 tabs levothyroxine 25 mcg tablet 25 mcg PO DAILY #30 tabs 06/01/24 promethazine 25 mg tablet 25 mg PO Q6H PRN nausea and 06/29/24 vomiting #30 tabs Allergies Allergy/AdvReac Type Severity Reaction Status Date / Time ciprofloxacin [From Cipro] Allergy ADR-Nausea Verified 07/03/24 19:01 Sulfa (Sulfonamide Allergy ADR-Itching Verified 07/03/24 19:01 Antibiotics) metoclopramide [From Reglan] AdvReac hyper Verified 07/03/24 19:01 fluvastatin Allergy ADR-Muscle Uncoded 07/03/24 19:01 Pain Review of Systems Narrative: Constitutional symptoms: Negative except as documented in HPI. Skin symptoms: Negative except as documented in HPI. Eye symptoms: Negative except as documented in HPI. ENMT symptoms: Negative except as documented in HPI. Respiratory symptoms: Negative except as documented in HPI. Cardiovascular symptoms: Negative except as documented in HPI. Gastrointestinal symptoms: Negative except as documented in HPI. Genitourinary symptoms: Negative except as documented in HPI. Musculoskeletal symptoms: Negative except as documented in HPI. Neurologic symptoms: Negative except as documented in HPI. Psychiatric symptoms: Negative except as documented in HPI. Endocrine symptoms: Negative except as documented in HPI. PFSH ED PFSH: Medical History Elevated cholesterol Hx of breast cancer Hx of skin cancer, basal cell Hypothyroidism Retina hole REPAIRED Microscopic hematuria Surgical History S/P partial colectomy Rectal mass - benign but causing partial blockage - 06/2024 History of lumpectomy of left breast Hx of gynecological procedure Family History Mother , AT AGE 84 Diabetes Cancer BREAST CAD (coronary artery disease) Father , AT AGE 49 LUNG CANCER Cancer Social History Smoking and tobacco/nicotine status: never used tobacco/nicotine Alcohol intake: never Marital status: Current occupational status: retired Physical Exam Narrative: EXAM NARRATIVE: General: Alert, no acute distress. Skin: Warm, dry. Head: Normocephalic, atraumatic. Neck: Supple, trachea midline. Eye: Extraocular movements are intact. Ears, nose, mouth and throat: Dry oral mucosa Cardiovascular: Regular, Normal peripheral perfusion. Respiratory: Lungs are clear to auscultation, respirations are non-labored, breath sounds are equal, Symmetrical chest wall expansion. Gastrointestinal: Soft, mild generalized tenderness, mild distention. Musculoskeletal: Normal ROM, no deformity. Neurological: Alert and oriented, No focal neurological deficit observed. Psychiatric: Cooperative, appropriate mood & affect. Course Vital Signs: Vital signs: Vital Signs Temperature 98.0 F 07/03/24 18:57 Pulse Rate 104 H 07/03/24 18:57 Respiratory Rate 16 07/03/24 18:57 Blood Pressure 127/78 07/03/24 18:57 Pulse Oximetry 99 07/03/24 18:57 Oxygen Delivery Me thod Room Air 07/03/24 18:57 MDM - Abdominal Pain Medical Decision Making Medical decision making: Differential diagnosis including but not limited to and based on the above HPI, review of systems and physical exam: - patient with complaint of abdominal distention and no bowel movements: Small bowel obstruction. Gastroparesis. Constipation. Ileus. Also evaluation for urinary retention, liver disease, renal failure. Orders placed to evaluate differential diagnosis based on the above differential, HPI and physical exam Lab Review: Laboratory results were reviewed and interpreted by myself the emergency room physician. White count is 7. No anemia. BUN and creatinine are 10 and 0.8. Her potassium is low at 2.9. X-ray of the abdomen: Very similar appearing to previous x-ray 6 days ago. Diffuse impressive ileus. There is gas all the way to the rectum so I do not think this is a small bowel obstruction. This was reviewed and interpreted by myself the emergency room physician. I also reviewed the radiology report. I reviewed the patient's medical record. Reexamination: Patient remained stable. No increased work of breathing. No altered mental status. No focal motor deficits. Still with some distention of her abdomen. Still tacky oral mucosa. We discussed the findings and I discussed consultation with surgeon at [facility] and our plan. Consultation: I spoke with Who is on-call for the general surgery with Dr. Beverly. He agrees to transfer. NPO. Fluids. Potassium replacement. Assessment and plan: Ileus Dehydration Hypokalemia -Normal saline bolus and starting maintenance IV fluids. Potassium rider 40 mill equivalents being given. - Discussed findings and plan with patient. Answered any questions. - All laboratory values were reviewed and interpreted personally by myself, the ER physician - All imaging was reviewed and interpreted personally by myself, the ER physician. - Evaluation and treatment of this problem were appropriate in the emergency setting Lab Data 07/03/24 19:40 07/03/24 19:40 Labs/Radiology: Radiology Impressions Chest/Abdomen X-ray 07/03/24 19:25 IMPRESSION: Prominent gaseous distension of multiple loops of bowel similar compared to CT scan June 27, 2024. Findings are concerning for ongoing ileus. Large gas containing hiatal hernia. Laboratory Results WBC 7.65 10^3/uL (3.29-11.43) 07/03/24 19:40 RBC 5.06 10^6/uL (3.85-5.65) 07/03/24 19:40 Hgb 13.40 g/dL (11.27-16.99) 07/03/24 19:40 Hct 40.5 % (36-47) 07/03/24 19:40 MCV 80.0 fl (85-98) L 07/03/24 19:40 MCH 26.5 pg (27-33) L 07/03/24 19:40 MCHC 33.1 g/dL (30-55) 07/03/24 19:40 RDW 13.2 % (12.1-15.1) 07/03/24 19:40 Plt Count 404 10^3/cmm (157-399) H 07/03/24 19:40 MPV 8.7 fL (7.4-10.4) 07/03/24 19:40 Neut % (Auto) 71.2 % 07/03/24 19:40 Lymph % (Auto) 22.4 % 07/03/24 19:40 [place] % (Auto) 5.4 % 07/03/24 19:40 Eos % (Auto) 0.3 % 07/03/24 19:40 Baso % (Auto) 0.3 % 07/03/24 19:40 Neut # (Auto) 5.46 10^3/uL (1.8-7.7) 07/03/24 19:40 Lymph # (Auto) 1.7 10^3/uL (0.8-4.8) 07/03/24 19:40 [place] # (Auto) 0.4 10^3/uL (0.2-0.9) 07/03/24 19:40 Eos # (Auto) 0.0 10^3/uL (0.0-0.8) 07/03/24 19:40 Baso # (Auto) 0.0 10^3/uL (0.0-0.1) 07/03/24 19:40 Nucleated RBC % (auto) 0 % 07/03/24 19:40 Nucleated RBCs # 0.0 /100WBC 07/03/24 19:40 Sodium 132 mmol/L (136-145) L 07/03/24 19:40 Potassium 2.9 mmol/L (3.5-5.1) L 07/03/24 19:40 Chloride 90 mmol/L (98-107) L 07/03/24 19:40 Carbon Dioxide 30 mmol/L (22-29) H 07/03/24 19:40 Anion Gap 14.9 (5-19) 07/03/24 19:40 BUN 10 mg/dL (8-23) 07/03/24 19:40 Creatinine 0.8 mg/dL (0.5-0.9) 07/03/24 19:40 GFR Calculation 71.5 mL/min (90-130) L 07/03/24 19:40 Glucose 99 mg/dL (65-115) 07/03/24 19:40 Calculated Osmolality 273 mOsm/kg (285-295) L 07/03/24 19:40 Calcium 8.9 mg/dL (8.5-10.5) 07/03/24 19:40 Total Bilirubin 0.5 mg/dL (0.15-1.2) 07/03/24 19:40 AST 40 U/L (0-32) H 07/03/24 19:40 ALT 47 U/L (0-33) H 07/03/24 19:40 Alkaline Phosphatase 77 U/L (35-105) 07/03/24 19:40 Total Protein 7.2 g/dL (6.6-8.7) 07/03/24 19:40 Albumin 4.2 g/dL (3.5-5.2) 07/03/24 19:40 Globulin 3.0 g/dL (1.3-4.6) 07/03/24 19:40 All radiology interpretation(s) finalized by discharge Discharge Plan Discharge Patient Disposition: Xfer Short-Term Hosp Clinical Impression: Ileus, Dehydration, Hypokalemia Condition: Stable Referrals: Domenico Rodriguez MD [Primary Care Provider] - Coding Level of Care Code ED Tugboat Engineer for Darlyn Amezcua
[2024-07-03 19:54] LABS: Basophils % 0.3 %; Eosinophils % 0.3 %; Hematocrit 40.5 % (36-47); Lymphocytes # 1.7 10^3/uL (0.8-4.8); Lymphocytes % 22.4 %; Mean Corpuscular HGB Conc 33.1 g/dL (30-55); Mean Corpuscular Hemoglobin 26.5 pg (27-33); Mean Platelet Volume 8.7 fL (7.4-10.4); Monocytes # 0.4 10^3/uL (0.2-0.9); Monocytes % 5.4 %; Neutrophils # 5.46 10^3/uL (1.8-7.7); Neutrophils % 71.2 %; Nucleated Red Blood Cells % 0 %; Platelet Count 404 10^3/cmm (157-399); Red Blood Count 5.06 10^6/uL (3.85-5.65); Red Cell Distribution Width 13.2 % (12.1-15.1); White Blood Count 7.65 10^3/uL (3.29-11.43)
[2024-07-03 20:00] VITALS: BP 139/81; PULSE 95; O2SAT 96
[2024-07-03 20:12] LABS: Alanine Aminotransferase 47 U/L (0-33); Albumin Level 4.2 g/dL (3.5-5.2); Alkaline Phosphatase 77 U/L (35-105); Anion Gap 14.9 (5-19); Aspartate Amino Transferase 40 U/L (0-32); Blood Urea Nitrogen 10 mg/dL (8-23); Calcium 8.9 mg/dL (8.5-10.5); Carbon Dioxide 30 mmol/L (22-29); Chloride 90 mmol/L (98-107); Creatinine Clr Calc Pharmacy 60.3738; Glomerular Filtration Rate 71.5 mL/min (90-130); Glucose 99 mg/dL (65-115); Osmolality Calculated 273 mOsm/kg (285-295); Sodium 132 mmol/L (136-145); Total Bilirubin 0.5 mg/dL (0.15-1.2); Total Protein 7.2 g/dL (6.6-8.7)
[2024-07-03 20:30] VITALS: BP 125/77; PULSE 89; O2SAT 95
[2024-07-03 20:31] LABS: Potassium 2.9 mmol/L (3.5-5.1)
[2024-07-03 21:00] VITALS: BP 128/76; PULSE 92; O2SAT 94
[2024-07-03] MEDS: sodium chloride 0.9% 1,000 ML 999 ML IV (22:11)
[2024-07-03] MEDS: potassium chloride premix 100 ML 25 MEQ IV (22:12)
[2024-07-03] MEDS: sodium chloride 0.9% 1,000 ML 100 ML IV (22:15)
[2024-07-03 22:19] VITALS: BP 142/72; PULSE 88; O2SAT 95
--- NOTE | 2024-07-03 22:32 | PC.NURSE ---
Report called to Domenico Lee at [facility] at 2230.
[2024-07-04] VITALS (7 sets, daily range): BP systolic 112–127; BP diastolic 64–73; PULSE 79–98; O2SAT 94–99
--- NOTE | 2024-07-04 00:43 | PC.NURSE ---
Potassium drip slowed at this time and maintenance fluids increased due to sensitivity in IV site. Site still patent at this time, with no apparent infiltration; hand does appear pink.
[2024-07-04] MEDS: sodium chloride 0.9% 1,000 ML 999 ML IV (02:47)
[2024-07-04] MEDS: sodium chloride 0.9% 1,000 ML 100 ML IV (08:32)
== END 2024-07-04 08:45 | disposition short-term general hospital (02) ==
PROVIDERS: Emergency Provider Emergency Medicine; PCP Family Medicine
DX: K56.7 Ileus, unspecified (principal); E86.0 Dehydration; E87.6 Hypokalemia; Z85.3 Personal history of malignant neoplasm of breast; Z90.49 Acquired absence of other specified parts of digestive tract
CPT/HCPCS: 36415; 74022; 80053; 85025; 96365; 96366; 99285; J3480; J7030

== ENCOUNTER → 2025-03-30 08:02 | Outpatient (BNVA) | payer MEDICARE, OTHER, SELFPAY | PROVIDERS: PCP Family Medicine; Visit Provider Family Medicine | DX: Z13.6 Encounter for screening for cardiovascular disorders (principal); E03.9 Hypothyroidism, unspecified; E55.9 Vitamin D deficiency, unspecified; Z51.81 Encounter for therapeutic drug level monitoring | CPT/HCPCS: 80053; 80061; 82306; 84439; 84443; 85025 ==

== ENCOUNTER 2025-04-07 10:13 | Outpatient (CLI) | payer MEDICARE, OTHER, SELFPAY ==
--- NOTE | 2025-04-07 10:30 | CT_ITS ---
WS: [id number] CT CHEST TECHNIQUE: Noncontrast CT of the chest with coronal and sagittal reformatted images. CLINICAL INFORMATION: Lung nodule COMPARISON: None. DLP: 227.[address] scans at [facility] use at least one of these dose optimization techniques: automated exposure control; mA and/or kV adjustment per patient size (includes targeted exams where dose is matched to clinical indication); or iterative reconstruction. FINDINGS: No suspicious pulmonary parenchymal abnormalities. No acute pulmonary infiltrates. Tiny 3 mm noncalcified nodule LEFT lower lobe laterally. This is best seen on the coronal imaging. Normal caliber thoracic aorta. Mild coronary calcification. No mediastinal or hilar lymphadenopathy. No axillary lymphadenopathy. Prior cholecystectomy. Esophageal hiatal hernia repair. Adrenal glands are normal. Small splenule. LEFT breast nodule upper inner LEFT breast measuring 6 mm. Surgical clips LEFT axilla. CT/CT chest wo con [id number] IMPRESSION: 1. Tiny 3 mm noncalcified nodule LEFT lower lobe laterally. This is best see n on the coronal imaging. 2. LEFT breast nodule upper inner LEFT breast measuring 6 mm. Recommend furthe r evaluation with LEFT breast diagnostic mammography and ultrasound. 3. No other suspicious findings.
== END 2025-04-07 10:14 | disposition home or self-care (01) ==
PROVIDERS: PCP Family Medicine; Visit Provider Family Medicine
DX: R91.1 Solitary pulmonary nodule (principal); Z00.00 Encounter for general adult medical examination without abnormal findings; I25.10 Atherosclerotic heart disease of native coronary artery without angina pectoris; Z90.49 Acquired absence of other specified parts of digestive tract; Z98.890 Other specified postprocedural states; D73.89 Other diseases of spleen; N63.22 Unspecified lump in the left breast, upper inner quadrant
CPT/HCPCS: 71250